=== PATIENT | female | born 1960 | race Caucasian/White ===

== ENCOUNTER 2018-08-07 16:28 | Outpatient (CLI) | payer OTHER | END 2018-08-07 16:29 | disposition home or self-care (01) | LOC: BICMAMMO 16:28 | PROVIDERS: ATTEND Obstetrics & Gynecology | DX: Z12.31 Encounter for screening mammogram for malignant neoplasm of breast (principal) | CPT/HCPCS: 77063; 77067 ==

== ENCOUNTER 2020-01-10 19:18 | Observation (INO) | payer OTHER ==
[2020-01-10] MEDS ORDERED: Ondansetron PF 4 MG/2 ML Vial IVP PRN (21:37)
[2020-01-10] MEDS ORDERED: Ondansetron ODT 4 MG TAB PO PRN (21:37)
[2020-01-10] MEDS ORDERED: Acetaminophen 325 MG TAB PO PRN (21:37)
[2020-01-10] MEDS ORDERED: traMADol HCl 50 MG TAB PO PRN (21:40)
[2020-01-10] MEDS ORDERED: Sodium Chloride 0.9% 1,000 ML IV SCH (22:00)
[2020-01-10] MEDS: cefTRIAXone\\ROCEPHIN 1 GM in Sodium Chloride 0.9% 100 ML IVPB SCH (23:01)
--- NOTE | 2020-01-10 23:20 | ULT ---
US Renal Bilateral STANDARD History: Evaluate for hemorrhagic cysts. Polycystic kidneys Comparison: None. Findings: There is cysts replacing majority of the renal parenchyma. Right kidney measures 7.9 x 8.3 x 18.9 cm and the left kidney measures 6.8 x 17 x 7.1 cm. Mild fullness of the left renal pelvis. No abnormal mass is appreciated. Interpolar left-sided 7 mm calculus, nonobstructing. Largest cysts of the right kidney measures 8 cm and the largest cyst of the left kidney measures 5 cm . Urinary bladder volume is 70 mL. Impression: 1. Polycystic kidneys with innumerable large cysts replacing the majority of the renal parenchyma. 2. Nonobstructive 7 mm left interpolar calculus. 3. Mild fullness of the left renal pelvis.
--- NOTE | 2020-01-10 23:46 | HP ---
PRIMARY CARE PHYSICIAN: Dr. Sanchez. CHIEF COMPLAINT: 1. Left flank and back pain. HISTORY OF PRESENT ILLNESS: The patient is a 59-year-old female with past medical history significant for polycystic kidney disease, kidney stones, diabetes type 2 with insulin pump, hypertension, hypothyroidism, who presents to the [facility] for the above complaint. The patient reports the development of acute onset of left flank and back pain this morning when she woke. She describes the pain as colicky, exacerbated and relieved by nothing. She reports that she went into work this morning and the pain intensified. She denies any nausea, vomiting, or diarrhea. She denies any dysuria or hematuria. She denies any recent fever or chills. The patient has a history of polycystic kidney disease and was concerned that she might have had a ruptured cyst, so she wanted further evaluation. At [facility], she was found to be hypertensive with a blood pressure 181/91 with a regular pulse, regular respirations, and regular oxygen saturation with 6/10 pain, and she was afebrile. CT of the abdomen and pelvis was positive for 2 to 3 mm calculus in the interpolar region of the left kidney and also a 1.3 x 1.0 cm calculus in the proximal left ureter with moderate to severe hydronephrosis. The patient had WBC count of 15.4. She had a BUN of 43 and a creatinine of 3.5. UA had small blood and protein of 100. It was recommended that the patient transfer by EMS to [facility] in [place]. The patient declined EMS and drove a personal vehicle. The patient also declined any medication treatment at the [facility]. PAST MEDICAL HISTORY: 1. Polycystic kidney disease. 2. Kidney stones. 3. Diabetes, type 2 with insulin pump. 4. Chronic kidney disease. 5. Hypertension. 6. Hypothyroidism. SURGICAL HISTORY: 1. Gastric sleeve. 2. . SOCIAL HISTORY: The patient lives with her family at home. She has no history of smoking, illicit drug use, or alcohol intake. She ambulates without any assistive devices, and she works at [employer] in [place]. FAMILY HISTORY: Contributory for polycystic kidney disease. ALLERGIES: NO KNOWN DRUG ALLERGIES. HOME MEDICATIONS: 1. Apresoline 25 mg p.o. b.i.d. 2. Synthroid 25 mcg p.o. daily. 3. Lasix 80 mg p.o. q.a.m. 4. Allopurinol 100 mg p.o. daily. 5. Aspirin 81 mg p.o. daily. REVIEW OF SYSTEMS: All review of systems are negative unless otherwise stated in the HPI. PHYSICAL EXAMINATION: VITAL SIGNS: 98 degree temperature, blood pressure 136/75, heart rate 78, respirations 18, and 99% on room air. Pain level, 6/10. CONSTITUTIONAL: The patient is alert and oriented to person, place, and time. She appears comfortable, nontoxic in appearance. HEAD: Atraumatic and normocephalic. EYES: PERRLA. Extraocular muscles intact. ENT: Nares patent bilaterally. Oropharynx clear. Uvula midline. Moist mucous membranes. No oral lesions. NECK: Supple. Trachea midline. Full range of motion. No cervical adenopathy. RESPIRATORY: Chest, respirations even and unlabored. Clear to auscultation. No rhonchi, wheezes, or rales. CARDIOVASCULAR: S1 and S2 appreciated. No murmurs, rubs, or gallops. ABDOMEN: Soft, nontender. Active bowel sounds. No guarding. No rigidity. No rebound. BACK: Full range of motion. No central spinous tenderness. Mild left CVA tenderness. EXTREMITIES: Bilateral upper extremities, full range of motion, strength intact , sensation intact, palpable radial pulses. Bilateral lower extremities, full range of motion, strength intact, sensation intact, palpable pedal pulses. No swelling. NEUROLOGIC: The patient is alert and oriented to person, place, and time. No focal deficits. Normal gait. PSYCHIATRIC: Normal affect. The patient is alert and oriented to person, place , and time. LABS AND DIAGNOSTICS: CT of the abdomen and pelvis was positive for 2 to 3 mm calculus in interpolar of the left kidney and a calculus in the proximal left ureter, approximately 1.3 to 1.0 cm with some moderate to severe hydronephrosis. Sodium 138, potassium 3.5, chloride 103, CO2 27, BUN 43, creatinine 3.5, glucose 93. WBCs 15.4, hemoglobin 12.2, hematocrit 37.9, and platelets 33.9. UA had positive small blood and protein of 100. IMPRESSION: 1. Left obstructing ureteral stone with severe left hydronephrosis. We will admit the patient to the oncology floor observation status. Expected length of stay less than 2 midnights. Upon admission to the floor in our hospital, the patient had normal blood pressure, normal pulse, normal respirations, and was afebrile. Reported pain, 6/10. CT of the abdomen and pelvis from the [facility] was positive for 2.3 mm calculus in the interpolar region of the left kidney and a calculus in the proximal left ureter 1.3 x 1.0 cm with moderate to severe hydronephrosis. The patient's WBCs were 15.4, BUN of 43, creatinine of 3.5. We will give IV fluid hydration. We will start Rocephin IV piggyback. We will consult Urology. We will start tramadol p.r.n. for analgesia. 2. Polycystic kidney disease. CT of the abdomen and pelvis did state that the findings are consistent with polycystic kidney disease, but noted that there are hyperattenuating lesions in the right and left kidney, likely proteinaceous versus hemorrhagic cyst, which could be better evaluated with an ultrasound. I will order a bilateral ultrasound. 3. Chronic kidney disease, stage 4. 4. Diabetes, type 2. The patient has an insulin pump, and she has declined any Accu-Cheks. She prefers to monitor her sugars on her own, stating that she knows her body best. 5. Hypertension. The patient originally reported to the [facility] hypertensive ; however, on admission to the hospital in [facility], she was normotensive. She reports that the blood pressure cuff used there in the [facility] was not the proper size and it was false high. We will continue to monitor patient's blood pressure. We will restart her Apresoline. We will hold her Lasix for now. 6. Hypothyroidism. The patient takes Synthroid as home medication. We will restart when reconciled by nursing. 7. Sequential compression devices for deep venous thrombosis prophylaxis. No gastrointestinal prophylaxis. The patient is a full code. The MPOA is her spouse, Magdiel, number [phone]. 8. Discussed the case with Dr. Herrera. Job ID: [id number] [id number]
[2020-01-11 00:09] VITALS: BMI 49.1
[2020-01-11 06:10] LABS: #Eosinphils 0.1 thou/uL (0.0-0.7); #Lymphocytes 1.6 thou/uL (1.20-3.40); #Monocytes 0.7 thou/uL (0.11-0.59); #Neutrophils 12.9 thou/uL (1.40-6.50); %Basophils 0.1 % (0.0-1.0); %Eosinophils 0.4 % (0.0-10.0); %Lymphocytes 10.4 % (21.0-51.0); %Monocytes 4.3 % (0.0-10.0); %Neutrophils 84.8 % (42.0-75.0); Hemoglobin 12.2 g/dL (12.0-16.0); Mean Corpuscular HGB CONC 33.3 g/dL (32.0-36.0); Mean Corpuscular Hemoglobin 27.5 pg (27.0-31.0); Mean Corpuscular Volume 82.6 fL (78.0-98.0); Mean Platelet Volume 7.7 fL (7.4-10.4); Platelet Count 356 thou/uL (130-400); RBC Distribution Width 14.3 % (11.5-14.5); Red Blood Cell (RBC) Count 4.45 mill/uL (4.20-5.40); White Blood Cell (WBC) Count 15.3 thou/uL (4.8-10.8)
[2020-01-11 06:28] LABS: Anion Gap 18 mmol/L (10-20); BUN (Urea Nitrogen) 49 mg/dL (9.8-20.1); Calc. Creatinine Clearance 31 mL/min (70-130); Calcium 9.4 mg/dL (7.8-10.44); Carbon Dioxide 23 mmol/L (22-29); Chloride 101 mmol/L (98-107); Estimated GFR-MDRD 11; Glucose 290 mg/dL (70-105); Potassium 3.9 mmol/L (3.5-5.1); Sodium 138 mmol/L (136-145)
[2020-01-11] MEDS ORDERED: Allopurinol 300 MG TAB PO SCH (09:00)
[2020-01-11] MEDS: Aspirin Chewable 81 MG TAB PO SCH (09:23)
[2020-01-11] MEDS: hydrALAZINE 25 MG TAB PO SCH ×2 (09:23→21:39)
--- NOTE | 2020-01-11 10:03 | CT ---
CT ABDOMEN AND PELVIS PERFORMEDOUT CONTRAST ENHANCEMENT: HISTORY: Hydronephrosis left kidney noted on ultrasound examination. FINDINGS: The lung bases are clear. The patient has undergone a gastric bypass-type procedure. The liver, spleen, pancreas, and gallbladder regions appear unremarkable. Right and left adrenal glands are normal. Polycystic kidneys are demonstrated. There is an approxim ately 12 mm lower pole right renal calculus and some punctate upper pole calculi present. On the lef t side there is a 12 mm calculus at the left ureteropelvic junction causing mild left-sided hydroneph rosis. There are some punctate left-sided renal calculi. Some of the cysts are of increased density probably related to hemorrhagic-type cysts. No significant periaortic or mesenteric adenopathy. CT OF PELVIS PERFORMED WITHOUT CONTRAST ENHANCEMENT: No adenopathy or mass. IMPRESSION: 1. Innumerable bilateral renal cysts, some of which are probably hemorrhagic in nature compatible wi th polycystic kidney disease. Also, bilateral renal calculi and some mild to moderate left-sided hyd ronephrosis related to a 12 mm left ureteropelvic junction calculus. 2. Incidental note is made of a small lipoma of the left tensor fascia des muscle. 3. Postop gastric bypass. POS: [facility]
--- NOTE | 2020-01-11 11:13 | CON ---
DATE OF CONSULTATION: 01/11/2020 PRIMARY CARE PHYSICIAN: Prerna Sanchez MD REASON FOR CONSULT: Polycystic kidney disease, hydronephrosis, left large ureteral calculi. HISTORY OF PRESENT ILLNESS: Ms. Calderon is a pleasant 59-year-old female, G2, P2, works at [employer] who has a history of polycystic kidney disease followed by Dr. Jarvis, type 2 diabetes, morbid obesity, hypertension, hypothyroidism, presented to an outside emergency room due to acute onset of left flank pain. Pain is rated in the left lower back radiating to the left lower quadrant, rated 6 to 8/10 on the pain scale with associated nausea. She denies history of fever, gross hematuria. The patient with history of autosomal dominant polycystic kidney disease, relates that she has one child, special needs, not yet tested. She has a brother who has also polycystic kidney disease, who has ruptured his kidney cyst in the past. The patient states that she has a pending appointment with Dr. Evans sometime next week as she called him regarding her left flank pain and was transitioned to the emergency room. She denies chest pain, shortness of breath, fever, chest pain. On admission, her white count is 15, she is afebrile. However, she does have an acute renal insufficiency from her baseline creatinine of 1.1 to 2.9. Her creatinine today is 4.22. She does relate prior history of uric acid stones, which she has passed tiny kidney stones in the past, denies prior surgical intervention for urolithiasis. She is on allopurinol for her gout, relates that this was provided to "dissolve" her stones. Currently, she was provided tramadol, resting comfortably. A renal ultrasound was done in-house as an outside CT demonstrated left hydronephrosis, polycystic kidney disease. As her creatinine is worse, renal ultrasound was obtained demonstrating mild hydronephrosis. I advised a stat CT scan, due to conflicting results, moreover with polycystic kidney disease, renal ultrasound will be somewhat suboptimal to assess for degree of hydronephrosis. PAST MEDICAL HISTORY: Polycystic kidney disease; history of urolithiasis, recurrent; type 2 diabetes, on insulin pump; chronic kidney disease, hypertension, hypothyroidism, morbid obesity. SURGICAL HISTORY: Gastric sleeve, status post . SOCIAL HISTORY: Lives at home, has extended family. Works at [employer] . FAMILY HISTORY: Positive for polycystic kidney disease. ALLERGIES: NO KNOWN DRUG ALLERGIES. HOME MEDICATIONS: Include. 1. Apresoline. 2. Synthroid. 3. Lasix. 4. Allopurinol. 5. Baby aspirin. CURRENT MEDICATIONS: Include, 1. Acetaminophen. 2. Allopurinol 300 mg. 3. Baby aspirin. 4. Rocephin. 5. Hydralazine. 6. Zofran. 7. Tramadol. TEN-POINT REVIEW OF SYSTEM: I have reviewed all 10-point review of system, otherwise it is unremarkable per HPI. PHYSICAL EXAMINATION: VITAL SIGNS: Stable. She is afebrile, 98, 80, 94, 132/60. GENERAL: The patient appears to be in no acute distress. HEENT: Grossly unremarkable. HEART: Regular rate. LUNGS: Clear. ABDOMEN: Morbidly obese, protuberant. No rigidity. No rebound. BACK: No significant CVA tenderness appreciated at this time. EXTREMITIES: No cyanosis, clubbing, or edema. Moving all 4 extremities NEUROLOGIC: No gross focal deficits. Sensation and muscle strength appears to be intact. SKIN: Soft and supple with no gross evidence of lymphadenopathy of concern. PERTINENT LABORATORY DATA AND IMAGING: White count is 15, hemoglobin is 12, platelet 356. Sodium 139, potassium 3.9, BUN 49, creatinine is 4.22. Her baseline creatinine is 1.1 to 2.9. Her hemoglobin A1c is 8.6. Uric acid is mildly elevated at 6.5. Calcium is 9.4. She does not have a current urinalysis. Her previous urine pH was 6.5 with no evidence of bacteria. Renal ultrasound images, which I have reviewed myself. 01/10/2020, polycystic disease with innumerous large renal cysts, nonobstructing 7 mm left interpolar calculus with mild fullness of the left kidney. CT of the abdomen and pelvis images, which I have reviewed myself: Innumerable bilateral renal cysts, some of which are probably hemorrhagic in nature and consistent with polycystic kidney disease. Bilateral renal calculi with moderate left hydronephrosis. There is a 12 to 13 mm left proximal ureteral calculi. Right lower pole 1 cm renal calculi. Hounsfield unit of the stone is approximately 491. Stone to skin distance is over 20 cm. IMPRESSION AND PLAN: Ms. Calderon is a pleasant 59-year-old female with history of , 1. Polycystic kidney disease. Recommend her child be tested with renal ultrasound 2. Chronic kidney disease. 3. Diabetes. 4. Hypertension. 5. Recurrent urolithiasis. Current admission due to large left proximal ureteral calculi, large proximal left renal calculi at the level of L3-L4. 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 6. Acute kidney injury. RECOMMENDATIONS: Given large left stone nidus with acute kidney injury, recommend cysto and left retrograde stent placement. UA C and S is to be obtained. I discussed with patient that despite her history of gout and uric acid stone, it is visible on sign shop supervisor, likely has a calcium moiety as well. Nevertheless, we will check a urinalysis pH, room for alkalinization if significant low urine pH for medical dissolution therapy, if component of uric acid. We discussed options of proceeding with ureteral stent due to acute kidney injury. Indications reviewed and she desires to proceed. She relates that she would like to follow up with Dr. Evans as planned, as her sees Dr. Evans as well. She would like to proceed with stent will transition care to Dr. Evans sometime next week. Continue Rocephin and Levaquin on-call to OR. She is a poor candidate for ESWL due to morbid obesity, stone to skin distance seen on CT. Reviewed with her regarding indications of staged ureteroscopy laser lithotripsy at a later date Job ID: [id number] [facility]
[2020-01-11 11:26] LABS: Bacteria/HPF None Seen HPF (None Seen); Bilirubin Negative (Negative); Blood, Urine 1+ (Negative); Clarity Clear (Clear); Glucose, Urine (Dipstick) 500 mg/dL (Negative); Ketone, Urine Negative (Negative); Leukocyte Negative Leu/uL (Negative); Nitrite Negative (Negative); Protein, Urine (Dipstick) 100 mg/dL (Neg-Trace); Specific Gravity, Urine 1.013 (1.002-1.036); Urobilinogen Normal mg/dL (Less than 2); WBC/HPF 0-3 HPF (0-3); pH, Urine 5.5 (5.0-9.0)
[2020-01-11] MEDS ORDERED: PROPOFOL 200 MG/20 ML VIAL ONE (13:18)
[2020-01-11] MEDS ORDERED: Lidocaine 1% PF 5 ML VIAL ONE (13:18)
[2020-01-11] MEDS ORDERED: Succinylcholine Chloride 20 MG/ML 10 ml SYRINGE FS ONE (13:18)
[2020-01-11] MEDS ORDERED: Ondansetron PF 4 MG/2 ML Vial ONE (13:18)
[2020-01-11] MEDS ORDERED: EPHEDRINE 25 MG/5 ML SYRINGE ONE (13:18)
[2020-01-11] MEDS ORDERED: Dexamethasone 20 MG/5 ML VIAL ONE (13:18)
[2020-01-11] MEDS ORDERED: Iopamidol 50 ML FS ONE (14:57)
[2020-01-11] MEDS ORDERED: Fentanyl 100 MCG/2 ML VIAL ONE ×2 (14:58→15:11)
[2020-01-11] MEDS ORDERED: Insulin Regular 300 UNITS/3 ML VIAL ONE (15:02)
[2020-01-11] MEDS ORDERED: Phenazopyridine HCl 97.5 MG TABLET PO PRN (15:54)
[2020-01-11] MEDS ORDERED: Oxybutynin 5 MG TAB PO PRN (15:54)
[2020-01-11] MEDS ORDERED: HYDROcodone/Acetaminophen 5/325 mg Tablet PO PRN ×2 (15:54)
--- NOTE | 2020-01-11 16:01 | RAD ---
RETROGRADE UROGRAM: 01/11/20 PROVIDED CLINICAL HISTORY: Ureteral calculus. FINDINGS: Single fluoroscopic imaging of the abdomen demonstrates contrast opacification of the left ureter and left renal collecting systems, latter of which appears dilated. Lucency within the left renal pelvis may be on the basis of artifactual or filling defect. Correlate with real time findings. IMPRESSION: As above. POS: [facility]
[2020-01-11] MEDS ORDERED: Ondansetron HCl/PF 4 MG/2 ML Vial IVP PRN (16:02)
[2020-01-11] MEDS ORDERED: Meperidine HCl/PF 25 MG/ML VIAL SLOW IVP PRN (16:02)
[2020-01-11] MEDS ORDERED: HYDROmorphone 2 MG/ML VIAL SLOW IVP PRN (16:02)
[2020-01-11] MEDS ORDERED: Promethazine HCl 25 MG/ML VIAL IM PRN (16:02)
[2020-01-11] MEDS ORDERED: Promethazine HCl 25 MG/ML VIAL SLOW IVP PRN (16:02)
[2020-01-11] MEDS: Potassium Citrate 10 MEQ TAB PO SCH ×2 (17:10→18:55)
[2020-01-11] MEDS: Sodium Chloride 0.9% 1,000 ML IV SCH ×2 (17:36→21:39)
--- NOTE | 2020-01-11 19:39 | OP ---
DATE OF PROCEDURE: 01/11/2020 PREOPERATIVE DIAGNOSES: 1. A 59-year-old morbidly obese female with history of left proximal 1.3 cm ureteral calculi with hydronephrosis. 2. Right nonobstructing lower pole renal calculi. 3. Bilateral polycystic kidney disease with chronic renal insufficiency. 4. Acute kidney injury. POSTOPERATIVE DIAGNOSES: 1. A 59-year-old morbidly obese female with history of left proximal 1.3 cm ureteral calculi with hydronephrosis. 2. Right nonobstructing lower pole renal calculi. 3. Bilateral polycystic kidney disease with chronic renal insufficiency. 4. Acute kidney injury. PROCEDURES PERFORMED: Cystoscopy, left retrograde pyelogram, 6 x 26 double-J ureteral stent placement. ANESTHESIA: General. COMPLICATIONS: None apparent. DISPOSITION: To recovery room in stable condition. INDICATIONS FOR PROCEDURE AND HISTORY: Ms. Calderon is a 59-year-old female who has history of polycystic kidney disease, presented with left flank pain, nausea, worsening of her creatinine. CT reviewed demonstrating a large left proximal ureteral calculi. She has been on Rocephin, urine culture pending. She presents with leukocytosis and acute renal insufficiency. Recommend cysto stent placement. Risks and complications of the procedure were reviewed with her in detail including, but not limited to, bleeding, pain, infection, injury to adjacent organs, urosepsis, ureteral renal bladder injury. We also discussed options of observation, which was less favored due to her presenting issues. DESCRIPTION OF PROCEDURE: After an informed consent was signed, the patient was taken to the operating room, placed in a dorsal lithotomy position with the genital area prepped and draped in the usual surgical sterile fashion. She has a large radiopaque density on KUB consistent with calcium stone. A 21-Kinyarwanda cystoscope was utilized for cystoscopy, which demonstrated normal bladder mucosa. Bilateral UOs were in normal orthotopic position and appeared patulous bilaterally. An open- ended catheter was intubated without significant issues and retrograde pyelogram gently performed demonstrating hydronephrosis with a large radiopaque stone. The stone did subsequently migrate into the renal pelvis, upper pole. A 6 x 26 double-J ureteral stent was passed without difficulty. She had no significant effluxing debris of concern. She tolerated the procedure well. She will be transitioned back to her floor. We will monitor her BMP. Anticipate the patient can be discharged likely tomorrow. She related that she would like to see Dr. Evans, as she had an appointment with him next week to assess her kidney stone. Job ID: [id number] TORI
[2020-01-11] MEDS ORDERED: cefTRIAXone\\ROCEPHIN 1 GM VIAL ONE (21:23)
[2020-01-11] MEDS: cefTRIAXone\\ROCEPHIN 1 GM in Sodium Chloride 0.9% 100 ML IVPB SCH (21:38)
[2020-01-11] MEDS: Docusate 100 MG CAP PO SCH (21:45)
[2020-01-12 04:40] LABS: #Lymphocytes 0.9 thou/uL (1.20-3.40); #Monocytes 0.4 thou/uL (0.11-0.59); #Neutrophils 10.1 thou/uL (1.40-6.50); %Basophils 0.1 % (0.0-1.0); %Eosinophils 0.1 % (0.0-10.0); %Lymphocytes 7.5 % (21.0-51.0); %Monocytes 3.7 % (0.0-10.0); %Neutrophils 88.6 % (42.0-75.0); Hemoglobin 10.9 g/dL (12.0-16.0); Mean Corpuscular HGB CONC 31.6 g/dL (32.0-36.0); Mean Corpuscular Hemoglobin 26.3 pg (27.0-31.0); Mean Corpuscular Volume 83.3 fL (78.0-98.0); Mean Platelet Volume 7.7 fL (7.4-10.4); Platelet Count 295 thou/uL (130-400); RBC Distribution Width 13.9 % (11.5-14.5); Red Blood Cell (RBC) Count 4.14 mill/uL (4.20-5.40); White Blood Cell (WBC) Count 11.4 thou/uL (4.8-10.8)
[2020-01-12 05:01] LABS: Anion Gap 15 mmol/L (10-20); BUN (Urea Nitrogen) 56 mg/dL (9.8-20.1); Calc. Creatinine Clearance 31 mL/min (70-130); Carbon Dioxide 22 mmol/L (22-29); Chloride 101 mmol/L (98-107); Estimated GFR-MDRD 11; Glucose 301 mg/dL (70-105); Potassium 3.9 mmol/L (3.5-5.1); Sodium 134 mmol/L (136-145)
[2020-01-12] MEDS: hydrALAZINE 25 MG TAB PO SCH (07:58)
[2020-01-12] MEDS: Aspirin Chewable 81 MG TAB PO SCH (07:59)
[2020-01-12] MEDS: Docusate 100 MG CAP PO SCH ×2 (07:59→08:01)
[2020-01-12] MEDS: Potassium Citrate 10 MEQ TAB PO SCH (07:59)
[2020-01-12] MEDS: Sodium Chloride 0.9% 1,000 ML IV SCH (07:59)
[2020-01-12 08:28] VITALS: BP 183/75; TEMP 98.2
[2020-01-12] MEDS ORDERED: Allopurinol 100 MG TAB PO SCH (09:00)
--- NOTE | 2020-01-12 10:41 | PRG ---
DATE OF SERVICE: 01/12/2020 SUBJECTIVE: The patient states that her pain is significantly improved. Denies nausea, vomiting, or fever. Has pink-tinged hematuria, which is expected. OBJECTIVE: VITAL SIGNS: Stable. She is 98, 69, 18, 95, and blood pressure is 183/75. I's and O's; 3130 in, 500 out. She is positive 2.6 L. Of note, her Lasix has been held due to acute renal insufficiency with chronic renal issues. GENERAL: The patient is in no acute distress. LUNGS: Clear. ABDOMEN: Soft, nontender, nondistended. No CVA tenderness. LABORATORY STUDIES: White count has decreased since admission from 15 to 11. No significant bandemia of concern. Renal function, her creatinine on presentation is 4.2, this morning is 1.1. Glucose 311. Urine culture negative thus far. Of note, this urine culture was obtained after she has received her antibiotic course of Rocephin. IMPRESSION AND PLAN: 1. Ms. Calderon is a pleasant 59-year-old morbidly obese female with history of polycystic disease. 2. Current admission due to left flank pain, due to a large left proximal ureteral calculi measuring 1.3 cm with hydronephrosis. 3. Right lower pole nonobstructing renal calculi, postop day #1, status post cysto,left retrograde stent. patient has significant improvement of her pain, she has no fever of concern. I informed the patient that it would be prudent to keep her another day to monitor her renal function. She is pretty adamant about being discharged to home. 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 Jarvis. In addition, she states that she has an appointment with Dr. Evans next week. I do recommend she follow up with her school psychological examiner to obtain a BMP profile in a close interval. She may be discharged with broad-spectrum antibiotic therapy such as Levaquin 250 mg one p.o. daily, Azo [id number] p.r.n., oxybutynin 10 mg XL one p.o. daily, tramadol p.r.n. if she has any discomfort. The patient advised regarding close followup as above. Can be discharged per her request. Discussed with hospitalist. Job ID: [id number] [id number]
--- NOTE | 2020-01-12 11:12 | DIS ---
DATE OF ADMISSION: 01/10/2020 DATE OF DISCHARGE: 01/12/2020 DISCHARGE DISPOSITION: Home. FOLLOWUP: 1. Follow up with primary care physician, Dr. Prerna Sanchze in 1 week. 2. Follow up with Nephrology, Dr. Basil Jarvis and Urology as scheduled. 3. Basic metabolic profile after 1 week is recommended. Primary care physician advised to follow. DISCHARGE MEDICATIONS: 1. Levaquin 250 mg every other day. 2. Oxybutynin as needed. The patient was advised to discontinue Lasix and allopurinol for now. The patient was seen on the day of discharge. Denies any new complaints. Vital signs showed temperature 98.4 with pulse rate of 75, respirations of 16, blood pressure of 144/65. BRIEF HOSPITAL COURSE: The patient is a 59-year-old female with polycystic kidney disease and CKD, presented to the emergency room with intractable left flank pain. Her workup was consistent with large left proximal ureteral calculi measuring 1.5 cm with hydronephrosis. She underwent cystoscopy with left retrograde stent placement by Dr. Camara. Abdominal pain has completely resolved. The urine cultures were drawn after the antibiotics, which came back negative. She will follow up with the above consultants as outpatient. FINAL DIAGNOSES: 1. Intractable left flank pain secondary to large left proximal ureteral calculi with hydronephrosis. 2. Acute kidney injury on chronic kidney disease stage 4. Creatinine slightly improved to 4.1 from 4.22. 3. Hypertension. 4. Diabetes mellitus type 2, on insulin pump. 5. History of polycystic kidney disease. 6. Mild hyponatremia. The patient understands the above plan of care. I discussed the plan of care with Urology and Nephrology. Job ID: [id number]
[2020-01-12 12:25] LABS: SARS-CoV-2 MS2 Positive; SARS-CoV-2 N Gene Negative; SARS-CoV-2 S Gene Negative; SARS-CoV-2 orf1ab Negative
== END 2020-01-12 10:05 | disposition home or self-care (01) ==
LOC: EEVIPCON 19:18 → ONC 19:18
PROVIDERS: ADMIT Internal Medicine; ATTEND Internal Medicine
PROC: 0T778DZ Dilation of Left Ureter with Intraluminal Device, Via Natural or Artificial Opening Endoscopic (ICD-10-PCS; principal; 2020-01-11)
DX: N13.2 Hydronephrosis with renal and ureteral calculous obstruction (principal); I12.9 Hypertensive chronic kidney disease with stage 1 through stage 4 chronic kidney disease, or unspecified chronic kidney disease; E11.22 Type 2 diabetes mellitus with diabetic chronic kidney disease; N18.4 Chronic kidney disease, stage 4 (severe); N17.9 Acute kidney failure, unspecified; Q61.19 Other polycystic kidney, infantile type; E87.1 Hypo-osmolality and hyponatremia; E03.9 Hypothyroidism, unspecified; M10.9 Gout, unspecified; E66.01 Morbid (severe) obesity due to excess calories; Z68.42 Body mass index [BMI] 45.0-49.9, adult; Z79.4 Long term (current) use of insulin; Z79.82 Long term (current) use of aspirin; Z79.899 Other long term (current) drug therapy; Z88.8 Allergy status to other drugs, medicaments and biological substances; Z96.41 Presence of insulin pump (external) (internal); Z98.84 Bariatric surgery status
CPT/HCPCS: 36415; 36416; 74176; 74420; 76770; 80048; 81001; 85025; 87086; 87635; 96361; 96375; 96376; G0378; J0696; J1100; J1815; J2001; J2405; J2704; J3010; J3490; Q0162; Q9967; U0003

== ENCOUNTER 2020-01-18 11:49 | Outpatient (CLI) | payer OTHER ==
[2020-01-19 12:38] LABS: SARS-CoV-2 MS2 Positive; SARS-CoV-2 N Gene Negative; SARS-CoV-2 S Gene Negative; SARS-CoV-2 orf1ab Negative
== END 2020-01-18 11:50 | disposition home or self-care (01) ==
LOC: LABBT 11:49
PROVIDERS: ATTEND Urology
DX: Z01.812 Encounter for preprocedural laboratory examination (principal); Z11.59 Encounter for screening for other viral diseases; N20.1 Calculus of ureter
CPT/HCPCS: 87635; U0003

== ENCOUNTER 2020-01-23 07:11 | Day surgery (SDC) | payer OTHER ==
[2020-01-21 10:13] VITALS: BMI 48.2
[2020-01-23 08:52] LABS: #Basophils 0.1 thou/uL (0.0-0.2); #Eosinphils 0.2 thou/uL (0.0-0.7); #Lymphocytes 1.7 thou/uL (1.20-3.40); #Monocytes 0.5 thou/uL (0.11-0.59); #Neutrophils 5.7 thou/uL (1.40-6.50); %Basophils 1.3 % (0.0-1.0); %Lymphocytes 20.6 % (21.0-51.0); %Monocytes 6.4 % (0.0-10.0); %Neutrophils 68.7 % (42.0-75.0); Hemoglobin 11.4 g/dL (12.0-16.0); Mean Corpuscular HGB CONC 32.2 g/dL (32.0-36.0); Mean Corpuscular Hemoglobin 26.9 pg (27.0-31.0); Mean Corpuscular Volume 83.5 fL (78.0-98.0); Mean Platelet Volume 7.3 fL (7.4-10.4); Platelet Count 324 thou/uL (130-400); RBC Distribution Width 14.1 % (11.5-14.5); Red Blood Cell (RBC) Count 4.24 mill/uL (4.20-5.40); White Blood Cell (WBC) Count 8.2 thou/uL (4.8-10.8)
[2020-01-23 08:57] LABS: PTT 32.5 sec (22.9-36.1); Prothrombin Time 13.2 sec (12.0-14.7)
[2020-01-23 09:16] LABS: Anion Gap 13 mmol/L (10-20); BUN (Urea Nitrogen) 46 mg/dL (9.8-20.1); Calc. Creatinine Clearance 41 mL/min (70-130); Calcium 9.2 mg/dL (7.8-10.44); Carbon Dioxide 28 mmol/L (22-29); Chloride 103 mmol/L (98-107); Estimated GFR-MDRD 15; Glucose 108 mg/dL (70-105); Potassium 3.2 mmol/L (3.5-5.1); Sodium 141 mmol/L (136-145)
[2020-01-23] MEDS ORDERED: Fentanyl 100 MCG/2 ML VIAL ONE (10:58)
[2020-01-23] MEDS ORDERED: Ondansetron PF 4 MG/2 ML Vial ONE (11:08)
[2020-01-23] MEDS ORDERED: PROPOFOL 200 MG/20 ML VIAL ONE (11:08)
[2020-01-23] MEDS ORDERED: EPHEDRINE 25 MG/5 ML SYRINGE ONE (11:08)
[2020-01-23] MEDS ORDERED: Rocuronium Bromide 10 MG/ML (10ML VIAL) ONE (11:08)
[2020-01-23] MEDS ORDERED: Lidocaine 1% PF 5 ML VIAL ONE (11:08)
[2020-01-23] MEDS ORDERED: SUGAMMADEX SODIUM 200 MG/2 ML VIAL ONE (12:14)
[2020-01-23] MEDS ORDERED: Iothalamate Meglumine 60% 50 ML VIAL FS ONE (12:31)
--- NOTE | 2020-01-23 14:50 | RAD ---
EXAM: Retrograde IVP HISTORY: Kidney stones COMPARISON: 01/11/2020 FINDINGS/IMPRESSION: Limited intraoperative fluoroscopic views of the retrograde IVP were submitted f or interpretation. The initial image shows a left-sided ureteral stent. A calcification is still seen adjacent to the proximal third of the stent. The latter images shows a lithotripsy device in the region of the calcification. The latter images show no residual calcification and a ureteral stent in good position in the left renal collecting system.
[2020-01-23] MEDS ORDERED: Ondansetron ODT 4 MG TAB ONE (16:49)
--- NOTE | 2020-01-23 19:35 | OP ---
DATE OF PROCEDURE: 01/23/2020 PREOPERATIVE DIAGNOSIS: Left proximal/renal pelvic stone measuring at least 1.2 cm in size. POSTOPERATIVE DIAGNOSIS: Left proximal/renal pelvic stone measuring at least 1.2 cm in size. PROCEDURES PERFORMED: Cystoscopy, removal of left stent, left retrograde, left flexible ureteroscopy with laser lithotripsy, stone retrieval, and stent replacement. ANESTHETIC: General. ESTIMATED BLOOD LOSS: Less than 75 mL. DRAINS: A 6-Australian x 22 cm double-J stent with a string attached. SPECIMEN REMOVED: Stone fragments. DESCRIPTION OF PROCEDURE: After obtaining written and verbal consent after receiving 250 of Levaquin, she was taken to the operating suite. She was placed in a supine position on the treatment table. PlexiPulses were placed on her lower extremities and turned on. She was given a general anesthetic and oral intubation. She was then gently placed in the modified dorsal lithotomy position. The fluoroscopy unit was placed over her. We could see the stent well, and we could actually see the stone well. She was sterilely prepped and draped. Cystoscopy was performed with a 22-Australian sheath. This was well lubricated and passed under direct vision into the female urethra with the aid of a 30-degree lens and video camera and monitor. The bladder was filled and emptied number of times and inspected. No abnormalities noted apart from the left double-J stent. The distal end of the stent was grasped and brought out through the urethral meatus, and a guidewire was fed up across this upper region of the collecting system. The stent was removed and discarded. A dual lumen catheter was placed over this guidewire and then contrast was injected through the second port showing no evidence of any extravasation and no significant evidence of hydronephrosis. The Stiff blue wire was placed through this port and the dual Australian catheters were removed, leaving both guidewires in place. A shortest ureteral sheath was used with obturator. This was well lubricated and placed over the blue Stiff wire and pushed all the way up to the area of the stone, which is just at the UPJ/renal pelvic junction region. The obturator wire was removed, and a flexible cystoscope was brought in and a small caliber holmium laser fiber was used. The stone was pushed back in the renal pelvis, and then it was treated with holmium laser lithotripsy, breaking up the smaller pieces. We would then use a basket to remove some of these. Couple of those were big enough that we had to laser them, and once this process was done and there was no significant fragment remaining, we looked at the ureter in its entirety as removed the sheath via the flexible ureteroscope. Once this was removed, we backloaded our green guidewire through the cystoscope, placed the [place] catheter up and injected some contrast to fill out a nonobstructing collecting system without any evidence of ureteral obstruction or extravasation along the collecting system. The guidewire was replaced, and then the stent was placed over the guidewire and pushed up into place with aid of a pusher, so its proximal end coiled in the renal pelvis and its distal end coiled in the bladder when the wire was removed. The bladder was drained. The instruments were removed. The string was cut, so it was exited 3 to 4 inches out of the urethral meatus. The patient was awakened, extubated, and taken by stretcher to the recovery room. Job ID: [id number]
== END 2020-01-23 17:58 | disposition home or self-care (01) ==
LOC: SDC 07:11
PROVIDERS: ATTEND Urology
PROC: 0TC48ZZ Extirpation of Matter from Left Kidney Pelvis, Via Natural or Artificial Opening Endoscopic (ICD-10-PCS; principal; 2020-01-23)
PROC: 0T778DZ Dilation of Left Ureter with Intraluminal Device, Via Natural or Artificial Opening Endoscopic (ICD-10-PCS; principal; 2020-01-23)
DX: N20.0 Calculus of kidney (principal); I12.9 Hypertensive chronic kidney disease with stage 1 through stage 4 chronic kidney disease, or unspecified chronic kidney disease; E11.22 Type 2 diabetes mellitus with diabetic chronic kidney disease; N18.9 Chronic kidney disease, unspecified; Z79.4 Long term (current) use of insulin; Z79.82 Long term (current) use of aspirin; Z79.899 Other long term (current) drug therapy; Z88.8 Allergy status to other drugs, medicaments and biological substances; Z91.041 Radiographic dye allergy status
CPT/HCPCS: 36415; 74420; 80048; 82365; 85025; 85610; 85730; 88300; J1956; J2405; J2704; J3010; Q0162

== ENCOUNTER 2021-03-17 19:00 | Outpatient (CLI) | payer OTHER | END 2021-03-17 19:01 | disposition home or self-care (01) | LOC: SLEEPLAB 19:00 | PROVIDERS: ATTEND Internal Medicine | DX: G47.33 Obstructive sleep apnea (adult) (pediatric) (principal); R06.83 Snoring; I10 Essential (primary) hypertension; G47.00 Insomnia, unspecified; G47.10 Hypersomnia, unspecified; E66.9 Obesity, unspecified; Z68.42 Body mass index [BMI] 45.0-49.9, adult | CPT/HCPCS: 95811 ==

== ENCOUNTER 2021-07-06 07:17 | Outpatient (CLI) | payer OTHER | END 2021-07-06 07:18 | disposition home or self-care (01) | LOC: ULT 07:17 | PROVIDERS: ATTEND Internal Medicine Nephrology | DX: I13.10 Hypertensive heart and chronic kidney disease without heart failure, with stage 1 through stage 4 chronic kidney disease, or unspecified chronic kidney disease (principal); E11.22 Type 2 diabetes mellitus with diabetic chronic kidney disease; N18.9 Chronic kidney disease, unspecified; R80.9 Proteinuria, unspecified; E87.6 Hypokalemia; N20.0 Calculus of kidney; E78.5 Hyperlipidemia, unspecified; Q61.3 Polycystic kidney, unspecified; N39.0 Urinary tract infection, site not specified; R31.0 Gross hematuria; E66.9 Obesity, unspecified; K21.9 Gastro-esophageal reflux disease without esophagitis | CPT/HCPCS: 76770; 93975 ==

== ENCOUNTER 2021-08-17 13:31 | Outpatient (CLI) | payer BC | END 2021-08-17 13:32 | disposition home or self-care (01) | LOC: BICMAMMO 13:31 | PROVIDERS: ATTEND Obstetrics & Gynecology | DX: Z12.31 Encounter for screening mammogram for malignant neoplasm of breast (principal) | CPT/HCPCS: 77063; 77067 ==

== ENCOUNTER 2021-12-15 03:34 | Inpatient (IN) | payer BC ==
[2021-12-15] MEDS ORDERED: Ondansetron PF 4 MG/2 ML Vial ONE (04:03)
[2021-12-15] MEDS ORDERED: Morphine 4 MG/ML VIAL ONE (04:03)
[2021-12-15 04:29] LABS: #Lymphocytes 1.2 thou/uL (1.20-3.40); #Monocytes 1.3 thou/uL (0.11-0.59); #Neutrophils 15.5 thou/uL (1.40-6.50); %Basophils 0.1 % (0.0-1.0); %Eosinophils 0.2 % (0.0-10.0); %Lymphocytes 6.6 % (21.0-51.0); %Neutrophils 86.1 % (42.0-75.0); Hemoglobin 8.7 g/dL (12.0-16.0); Mean Corpuscular Hemoglobin 29.4 pg (27.0-31.0); Mean Platelet Volume 7.1 fL (7.4-10.4); Platelet Count 283 thou/uL (130-400); RBC Distribution Width 13.9 % (11.5-14.5); Red Blood Cell (RBC) Count 2.97 mill/uL (4.20-5.40)
[2021-12-15 04:35] LABS: Bacteria/HPF 3+ HPF (None Seen); Bilirubin Negative (Negative); Blood, Urine 3+ (Negative); Clarity Extra Turbid (Clear); Glucose, Urine (Dipstick) 70 mg/dL (Negative); Ketone, Urine Trace mg/dL (Negative); Leukocyte 500 Leu/uL (Negative); Nitrite Negative (Negative); Protein, Urine (Dipstick) 100 mg/dL (Neg-Trace); RBC/HPF Greater than 50 HPF (0-3); Transitional Epithelial 0-3 HPF (None Seen); Urobilinogen Normal mg/dL (Less than 2); WBC/HPF Greater than 50 HPF (0-3); pH, Urine 5.5 (5.0-9.0)
[2021-12-15 04:50] LABS: ALT (SGPT) Less than 7 U/L (8-55); AST (SGOT) 10 U/L (5-34); Albumin 3.7 g/dL (3.5-5.0); Alkaline Phosphatase 53 U/L (40-110); Anion Gap 21 mmol/L (10-20); BUN (Urea Nitrogen) 96 mg/dL (9.8-20.1); Bilirubin, Total 0.5 mg/dL (0.2-1.2); Calc. Creatinine Clearance 0 mL/min (70-130); Calcium 8.9 mg/dL (7.8-10.44); Carbon Dioxide 14 mmol/L (22-29); Chloride 101 mmol/L (98-107); Globulin 3.3 g/dL (2.4-3.5); Glucose 122 mg/dL (70-105); Lipase 12 U/L (8-78); Potassium 3.9 mmol/L (3.5-5.1); Sodium 132 mmol/L (136-145)
[2021-12-15] MEDS ORDERED: cefTRIAXone\\ROCEPHIN 2 GM VIAL ONE (04:51)
[2021-12-15] MEDS ORDERED: Fentanyl 100 MCG/2 ML VIAL ONE (05:18)
[2021-12-15] MEDS ORDERED: Piperacillin/Tazobactam 3.375 GM in Sodium Chloride 0.9% 100 ML IVPB SCH (06:00)
[2021-12-15 08:03] VITALS: BMI 47.8
[2021-12-15] MEDS ORDERED: Dextrose 5% in Water 1,000 ML IV PRN (08:16)
[2021-12-15] MEDS ORDERED: Dextrose 50% Abboject 50 ML SYRINGE SLOW IVP PRN (08:16)
[2021-12-15] MEDS ORDERED: Senokot S 8.6-50 MG TAB PO PRN (08:23)
[2021-12-15] MEDS ORDERED: Ondansetron ODT 4 MG TAB PO PRN (08:23)
[2021-12-15] MEDS ORDERED: Sodium Chloride 0.9% 1,000 ML IV SCH (08:30)
[2021-12-15] MEDS: Morphine 2 MG/ML VIAL SLOW IVP PRN ×4 (08:38→20:59)
[2021-12-15] MEDS: Ondansetron PF 4 MG/2 ML Vial IVP PRN ×2 (08:39→16:54)
[2021-12-15] MEDS: Acetaminophen 325 MG TAB PO PRN (18:14)
[2021-12-16] MEDS: Ondansetron PF 4 MG/2 ML Vial IVP PRN ×2 (01:02→09:19)
[2021-12-16] MEDS: Morphine 2 MG/ML VIAL SLOW IVP PRN ×3 (01:02→09:19)
[2021-12-16] MEDS: cefTRIAXone\\ROCEPHIN 2 GM in Sodium Chloride 0.9% 100 ML IVPB SCH (04:59)
[2021-12-16 06:52] LABS: Band 11 % (5-11); Hemoglobin 8.4 g/dL (12.0-16.0); Lymphocytes 2 % (21-51); MDiff Complete? YES; Mean Corpuscular HGB CONC 31.5 g/dL (32.0-36.0); Mean Corpuscular Hemoglobin 28.9 pg (27.0-31.0); Mean Corpuscular Volume 91.8 fL (78.0-98.0); Mean Platelet Volume 7.7 fL (7.4-10.4); Monocytes 5 % (0-10); Neutrophil 82 % (42-75); Platelet Count 268 thou/uL (130-400); RBC Distribution Width 13.9 % (11.5-14.5); Red Blood Cell (RBC) Count 2.89 mill/uL (4.20-5.40); White Blood Cell (WBC) Count 22.4 thou/uL (4.8-10.8)
[2021-12-16 06:56] LABS: Anion Gap 21 mmol/L (10-20); BUN (Urea Nitrogen) 110 mg/dL (9.8-20.1); Calc. Creatinine Clearance 12 mL/min (70-130); Calcium 9.2 mg/dL (7.8-10.44); Carbon Dioxide 15 mmol/L (22-29); Chloride 100 mmol/L (98-107); Glucose 97 mg/dL (70-105); Potassium 4.4 mmol/L (3.5-5.1); Sodium 132 mmol/L (136-145)
[2021-12-16] MEDS: Pantoprazole 40 MG VIAL IVP SCH (09:20)
[2021-12-16] MEDS ORDERED: ceFAZolin 2 GM/Dextrose 50 ML 2 GM in Premix Bag 1 BAG IVPB SCH (10:15)
[2021-12-16] MEDS ORDERED: CEFAZOLIN 2 GM in Sodium Chloride 0.9% 100 ML IVPB SCH (10:45)
[2021-12-16 11:12] LABS: Hep C IgG Ab Non-Reactive (NonReactive); Hep C Index 0.21 S/CO (0-0.79)
[2021-12-16] MEDS ORDERED: Lidocaine 1% w/Epinephrine 1:100K 20 ML VIAL ONE (16:32)
[2021-12-16] MEDS ORDERED: Bupivacaine 0.25% HCL 30 ML VIAL ONE (16:32)
[2021-12-16] MEDS ORDERED: Heparin 10,000 UNITS/ 10 ML VIAL ONE (16:32)
[2021-12-16] MEDS: Tuberculin PPD 0.1 ML VIAL I-DERMAL SCH (22:08)
[2021-12-17] MEDS: Morphine 2 MG/ML VIAL SLOW IVP PRN (02:27)
[2021-12-17] MEDS: cefTRIAXone\\ROCEPHIN 2 GM in Sodium Chloride 0.9% 100 ML IVPB SCH (04:50)
[2021-12-17 06:55] LABS: #Eosinphils 0.1 thou/uL (0.0-0.7); #Neutrophils 17.8 thou/uL (1.40-6.50); %Basophils 0.1 % (0.0-1.0); %Eosinophils 0.6 % (0.0-10.0); %Lymphocytes 5.1 % (21.0-51.0); %Monocytes 5.2 % (0.0-10.0); Hemoglobin 8.3 g/dL (12.0-16.0); Mean Corpuscular Volume 90.8 fL (78.0-98.0); Mean Platelet Volume 7.5 fL (7.4-10.4); Platelet Count 327 thou/uL (130-400); RBC Distribution Width 13.9 % (11.5-14.5); Red Blood Cell (RBC) Count 2.86 mill/uL (4.20-5.40)
[2021-12-17 07:20] LABS: Anion Gap 23 mmol/L (10-20); BUN (Urea Nitrogen) 124 mg/dL (9.8-20.1); Calc. Creatinine Clearance 10 mL/min (70-130); Calcium 9.6 mg/dL (7.8-10.44); Carbon Dioxide 14 mmol/L (22-29); Chloride 100 mmol/L (98-107); Glucose 125 mg/dL (70-105); Potassium 4.5 mmol/L (3.5-5.1); Sodium 132 mmol/L (136-145)
[2021-12-17 08:42] LABS: HBSAB Concentration Less than 8.00 mIU/mL; HBSAg Index 0.27 S/CO (0-0.99); Hep B Core Total Ab Non-Reactive (NonReactive); Hep B Core Total Index 0.12 S/CO (0-0.79); Hep B Surf AB Non-Reactive (NonReactive); Hep B Surf Ag Non-Reactive S/CO (NonReactive); Hep C IgG Ab Non-Reactive (NonReactive); Hep C Index 0.21 S/CO (0-0.79)
[2021-12-17] MEDS ORDERED: Epoetin (ESRD) 10,000 UNITS/ML VIAL SC SCH (09:00)
[2021-12-17] MEDS: Pantoprazole 40 MG VIAL IVP SCH (10:27)
[2021-12-17] MEDS ORDERED: Lidocaine 1% w/Epinephrine 1:100K 20 ML VIAL ONE (12:21)
[2021-12-17] MEDS ORDERED: Heparin 10,000 UNITS/ 10 ML VIAL ONE (12:21)
[2021-12-17] MEDS ORDERED: Bupivacaine 0.25% HCL 30 ML VIAL ONE (12:21)
[2021-12-17] MEDS ORDERED: Midazolam HCl 2 mg/2 ml Vial ONE (12:25)
[2021-12-17] MEDS ORDERED: fentaNYL Citrate/PF 100 MCG/2 ML SYRINGE ONE (12:26)
[2021-12-17] MEDS ORDERED: Sodium Chloride 0.9% 100 ML ONE (12:32)
[2021-12-17] MEDS ORDERED: CEFAZOLIN 2 GM VIAL ONE (12:32)
[2021-12-17] MEDS ORDERED: SUGAMMADEX SODIUM 200 MG/2 ML VIAL ONE (12:33)
[2021-12-17] MEDS ORDERED: PROPOFOL 200 MG/20 ML VIAL ONE (12:46)
[2021-12-17] MEDS ORDERED: Lidocaine 1% PF 5 ML VIAL ONE (12:46)
[2021-12-17] MEDS ORDERED: Rocuronium Bromide 10 MG/ML (10ML VIAL) ONE (12:46)
[2021-12-17] MEDS ORDERED: Ondansetron PF 4 MG/2 ML Vial ONE (12:46)
[2021-12-17] MEDS ORDERED: PHENYLEPHRINE-NS 100 MCG/ML 10 ML SYRINGE ONE (12:46)
[2021-12-17] MEDS: Tuberculin PPD 0.1 ML VIAL I-DERMAL SCH (13:43)
[2021-12-17] MEDS: Acetaminophen 325 MG TAB PO PRN (18:17)
[2021-12-18] MEDS: Ondansetron PF 4 MG/2 ML Vial IVP PRN ×2 (00:36→23:00)
[2021-12-18] MEDS: cefTRIAXone\\ROCEPHIN 2 GM in Sodium Chloride 0.9% 100 ML IVPB SCH (04:41)
[2021-12-18 07:18] LABS: Hep B Surface AG-Rflx Sendout Negative (Negative); Hepatitis B Core Total Negative (Negative); Hepatitis B Surface AB-Sendout Non Reactive (.)
[2021-12-18] MEDS: Pantoprazole 40 MG VIAL IVP SCH (07:58)
[2021-12-18 08:38] LABS: #Eosinphils 0.1 thou/uL (0.0-0.7); #Lymphocytes 0.8 thou/uL (1.20-3.40); #Monocytes 0.9 thou/uL (0.11-0.59); #Neutrophils 16.1 thou/uL (1.40-6.50); %Eosinophils 0.8 % (0.0-10.0); %Lymphocytes 4.4 % (21.0-51.0); %Monocytes 4.9 % (0.0-10.0); %Neutrophils 89.9 % (42.0-75.0); Hemoglobin 8.4 g/dL (12.0-16.0); Mean Corpuscular HGB CONC 31.3 g/dL (32.0-36.0); Mean Corpuscular Hemoglobin 29.1 pg (27.0-31.0); Mean Corpuscular Volume 93.2 fL (78.0-98.0); Mean Platelet Volume 7.5 fL (7.4-10.4); Platelet Count 373 thou/uL (130-400); Red Blood Cell (RBC) Count 2.88 mill/uL (4.20-5.40)
[2021-12-18 08:57] LABS: Anion Gap 26 mmol/L (10-20); Calc. Creatinine Clearance 9 mL/min (70-130); Calcium 9.3 mg/dL (7.8-10.44); Carbon Dioxide 12 mmol/L (22-29); Chloride 99 mmol/L (98-107); Glucose 124 mg/dL (70-105); Potassium 5.1 mmol/L (3.5-5.1); Sodium 132 mmol/L (136-145)
[2021-12-18 09:08] LABS: BUN (Urea Nitrogen) 127 mg/dL (9.8-20.1)
[2021-12-18] MEDS ORDERED: Heparin 10,000 UNITS/ 10 ML VIAL ONE (09:31)
[2021-12-18] MEDS: Tuberculin PPD 0.1 ML VIAL I-DERMAL SCH (14:50)
[2021-12-18] MEDS: Calcium Carbonate 500 MG ChewTAB PO PRN (23:07)
[2021-12-19] MEDS: cefTRIAXone\\ROCEPHIN 2 GM in Sodium Chloride 0.9% 100 ML IVPB SCH (04:19)
[2021-12-19 06:31] LABS: #Eosinphils 0.3 thou/uL (0.0-0.7); #Lymphocytes 0.9 thou/uL (1.20-3.40); #Monocytes 0.9 thou/uL (0.11-0.59); #Neutrophils 9.2 thou/uL (1.40-6.50); %Basophils 0.1 % (0.0-1.0); %Lymphocytes 8.3 % (21.0-51.0); %Monocytes 7.7 % (0.0-10.0); Hemoglobin 8.6 g/dL (12.0-16.0); Mean Corpuscular HGB CONC 31.4 g/dL (32.0-36.0); Mean Corpuscular Volume 92.2 fL (78.0-98.0); Mean Platelet Volume 7.3 fL (7.4-10.4); Platelet Count 381 thou/uL (130-400); RBC Distribution Width 14.1 % (11.5-14.5); Red Blood Cell (RBC) Count 2.96 mill/uL (4.20-5.40); White Blood Cell (WBC) Count 11.4 thou/uL (4.8-10.8)
[2021-12-19 06:53] LABS: Anion Gap 23 mmol/L (10-20); BUN (Urea Nitrogen) 123 mg/dL (9.8-20.1); Calc. Creatinine Clearance 10 mL/min (70-130); Calcium 8.9 mg/dL (7.8-10.44); Carbon Dioxide 16 mmol/L (22-29); Chloride 99 mmol/L (98-107); Glucose 150 mg/dL (70-105); Potassium 4.3 mmol/L (3.5-5.1); Sodium 134 mmol/L (136-145)
[2021-12-19] MEDS: Pantoprazole 40 MG VIAL IVP SCH (08:00)
[2021-12-19] MEDS ORDERED: Polyethylene Glycol 3350 17 GM Packet PO PRN (10:57)
[2021-12-19] MEDS ORDERED: Levothyroxine Sodium 75 MCG TAB PO SCH (11:15)
[2021-12-19] MEDS: Ondansetron ODT 4 MG TAB PO SCH ×2 (11:20→17:02)
[2021-12-19] MEDS: Tuberculin PPD 0.1 ML VIAL I-DERMAL SCH (13:34)
[2021-12-19] MEDS: Calcium Carbonate 500 MG ChewTAB PO PRN (20:49)
[2021-12-19] MEDS: Atorvastatin Calcium 20 MG TAB PO SCH (20:49)
[2021-12-20] MEDS: Ondansetron ODT 4 MG TAB PO SCH ×4 (02:17→20:24)
[2021-12-20] MEDS: cefTRIAXone\\ROCEPHIN 2 GM in Sodium Chloride 0.9% 100 ML IVPB SCH (05:39)
[2021-12-20] MEDS: Levothyroxine Sodium 75 MCG TAB PO SCH (05:39)
[2021-12-20 07:46] LABS: #Eosinphils 0.1 thou/uL (0.0-0.7); #Lymphocytes 0.9 thou/uL (1.20-3.40); #Neutrophils 12.8 thou/uL (1.40-6.50); %Basophils 0.2 % (0.0-1.0); %Lymphocytes 5.8 % (21.0-51.0); Hemoglobin 8.4 g/dL (12.0-16.0); Mean Corpuscular HGB CONC 31.8 g/dL (32.0-36.0); Mean Corpuscular Hemoglobin 29.2 pg (27.0-31.0); Mean Corpuscular Volume 91.9 fL (78.0-98.0); Mean Platelet Volume 7.4 fL (7.4-10.4); Platelet Count 367 thou/uL (130-400); Red Blood Cell (RBC) Count 2.86 mill/uL (4.20-5.40); White Blood Cell (WBC) Count 14.9 thou/uL (4.8-10.8)
[2021-12-20 08:10] LABS: Anion Gap 24 mmol/L (10-20); Calc. Creatinine Clearance 9 mL/min (70-130); Calcium 8.6 mg/dL (7.8-10.44); Carbon Dioxide 13 mmol/L (22-29); Chloride 99 mmol/L (98-107); Glucose 101 mg/dL (70-105); Potassium 4.1 mmol/L (3.5-5.1); Sodium 132 mmol/L (136-145)
[2021-12-20 08:21] LABS: BUN (Urea Nitrogen) 123 mg/dL (9.8-20.1)
[2021-12-20] MEDS: Ondansetron PF 4 MG/2 ML Vial IVP PRN (09:06)
[2021-12-20] MEDS: Pantoprazole 40 MG VIAL IVP SCH (09:06)
[2021-12-20] MEDS ORDERED: Heparin 10,000 UNITS/ 10 ML VIAL ONE (09:36)
[2021-12-20] MEDS ORDERED: Ondansetron ODT 4 MG TAB PO SCH (14:15)
[2021-12-20] MEDS: Atorvastatin Calcium 20 MG TAB PO SCH (20:23)
[2021-12-20] MEDS: Docusate 100 MG CAP PO SCH (20:25)
[2021-12-21] MEDS ORDERED: cefTRIAXone\\ROCEPHIN 2 GM in Sodium Chloride 0.9% 100 ML IVPB SCH (06:00)
[2021-12-21] MEDS: Levothyroxine Sodium 75 MCG TAB PO SCH (06:00)
[2021-12-21] MEDS: Ondansetron PF 4 MG/2 ML Vial IVP PRN (06:06)
[2021-12-21] MEDS: Calcium Carbonate 500 MG ChewTAB PO PRN (06:06)
[2021-12-21 07:37] VITALS: TEMP 97.8
[2021-12-21] MEDS: Ondansetron ODT 4 MG TAB PO SCH ×2 (08:11→15:10)
[2021-12-21] MEDS: Docusate 100 MG CAP PO SCH (08:11)
[2021-12-21] MEDS: Pantoprazole 40 MG VIAL IVP SCH (08:12)
[2021-12-21] MEDS ORDERED: Heparin 10,000 UNITS/ 10 ML VIAL ONE (08:55)
[2021-12-21 15:33] VITALS: BP 162/68
== END 2021-12-21 15:40 | disposition home or self-care (01) | DRG 871 ==
LOC: ERS 03:34 → T4-A 05:52
PROVIDERS: ADMIT Family Medicine; ATTEND Family Medicine
PROC: 3E03329 Introduction of Other Anti-infective into Peripheral Vein, Percutaneous Approach (ICD-10-PCS; principal; 2021-12-15)
PROC: 0JH63XZ Insertion of Tunneled Vascular Access Device into Chest Subcutaneous Tissue and Fascia, Percutaneous Approach (ICD-10-PCS; 2021-12-17)
PROC: 02HV33Z Insertion of Infusion Device into Superior Vena Cava, Percutaneous Approach (ICD-10-PCS; 2021-12-17)
PROC: B548ZZA Ultrasonography of Superior Vena Cava, Guidance (ICD-10-PCS; 2021-12-17)
DX: A41.9 Sepsis, unspecified organism (principal); N18.6 End stage renal disease; Z68.42 Body mass index [BMI] 45.0-49.9, adult; I12.0 Hypertensive chronic kidney disease with stage 5 chronic kidney disease or end stage renal disease; N10 Acute pyelonephritis; N17.9 Acute kidney failure, unspecified; E87.1 Hypo-osmolality and hyponatremia; Z20.822 Contact with and (suspected) exposure to COVID-19; Z96.41 Presence of insulin pump (external) (internal); E11.22 Type 2 diabetes mellitus with diabetic chronic kidney disease; N28.1 Cyst of kidney, acquired; E66.01 Morbid (severe) obesity due to excess calories; G47.33 Obstructive sleep apnea (adult) (pediatric); D63.1 Anemia in chronic kidney disease; R65.20 Severe sepsis without septic shock; M10.9 Gout, unspecified; R31.9 Hematuria, unspecified; K21.9 Gastro-esophageal reflux disease without esophagitis; Z98.84 Bariatric surgery status; Z79.82 Long term (current) use of aspirin; Z79.899 Other long term (current) drug therapy; Z79.4 Long term (current) use of insulin; Z91.041 Radiographic dye allergy status; Z88.1 Allergy status to other antibiotic agents; Z79.890 Hormone replacement therapy
CPT/HCPCS: 36415; 36416; 71045; 74176; 80048; 80053; 81003; 81015; 83605; 83690; 83880; 85025; 86580; 86704; 86706; 86803; 87040; 87086; 87340; 90935; 93970; 96365; 96375; C1752; C9113; G0257; J0696; J1644; J2250; J2270; J2405; J2704; J3010; J3490; Q0162; Q4081; S0020; U0003; U0005

== ENCOUNTER 2022-02-04 12:10 | Outpatient (CLI) | payer BC | END 2022-02-04 12:11 | disposition home or self-care (01) | LOC: ULT 12:10 | PROVIDERS: ATTEND Internal Medicine | DX: N18.6 End stage renal disease (principal) | CPT/HCPCS: 93306 ==

== ENCOUNTER 2022-03-26 09:52 | Outpatient (CLI) | payer BC | END 2022-03-26 09:53 | disposition home or self-care (01) | LOC: BICRAD 09:52 | PROVIDERS: ATTEND Internal Medicine Nephrology | DX: T85.691S Other mechanical complication of intraperitoneal dialysis catheter, sequela (principal); Z99.2 Dependence on renal dialysis | CPT/HCPCS: 74019 ==

== ENCOUNTER 2022-10-18 08:01 | Outpatient (CLI) | payer BC, MEDICARE ==
[2022-10-18 08:40] LABS: #Basophils 0.1 10x3/uL (0.0-0.2); #Eosinphils 0.2 10x3/uL (0.0-0.5); #Monocytes 0.4 10x3/uL (0.0-1.1); #Neutrophils 5.7 10x3/uL (1.5-8.4); %Eosinophils 2.8 % (0.0-6.0); %Lymphocytes 21.6 % (18.0-47.0); %Monocytes 5.3 % (0.0-10.0); %Neutrophils 69.1 % (40.0-75.0); Hemoglobin 11.5 g/dL (12.0-15.5); Mean Corpuscular HGB CONC 30.7 g/dL (32.0-36.0); Mean Corpuscular Hemoglobin 30.7 pg (27.0-33.0); Mean Platelet Volume 9.2 fl (7.4-10.4); Platelet Count 223 10x3/uL (150-450); RBC Distribution Width 13.5 % (11.5-14.5); Red Blood Cell (RBC) Count 3.74 10x6/uL (3.90-5.03); White Blood Cell (WBC) Count 8.2 10x3/uL (3.5-10.5)
[2022-10-18 09:39] LABS: Anion Gap 20 mmol/L (10-20); BUN (Urea Nitrogen) 41 mg/dL (9.8-20.1); Calc. Creatinine Clearance 0 mL/min (70-130); Calcium 8.9 mg/dL (7.8-10.44); Carbon Dioxide 23 mmol/L (22-29); Chloride 101 mmol/L (98-107); Estimated GFR 5; Glucose 139 mg/dL (70-105); Potassium 5.5 mmol/L (3.5-5.1); Sodium 138 mmol/L (136-145)
== END 2022-10-18 08:02 | disposition home or self-care (01) ==
LOC: LABBT 08:01
PROVIDERS: ATTEND Surgery
DX: Z01.812 Encounter for preprocedural laboratory examination (principal); T82.49XA Other complication of vascular dialysis catheter, initial encounter
CPT/HCPCS: 80048; 85025

== ENCOUNTER 2022-10-26 09:01 | Day surgery (SDC) | payer BC, MEDICARE ==
[2022-10-22 10:07] VITALS: BMI 44.2
[2022-10-26] MEDS ORDERED: Sodium Chloride 0.9% 100 ML ONE (10:33)
[2022-10-26] MEDS ORDERED: CEFAZOLIN 2 GM VIAL ONE (10:33)
[2022-10-26] MEDS ORDERED: Acetaminophen 500 MG TAB ONE (10:38)
[2022-10-26] MEDS ORDERED: Famotidine/PF 20 mg/2ml Vial ONE (10:39)
[2022-10-26 11:27] LABS: Anion Gap 20 mmol/L (10-20); BUN (Urea Nitrogen) 27 mg/dL (9.8-20.1); Calc. Creatinine Clearance 18 mL/min (70-130); Calcium 9.5 mg/dL (7.8-10.44); Carbon Dioxide 23 mmol/L (22-29); Chloride 101 mmol/L (98-107); Estimated GFR 7; Glucose 130 mg/dL (70-105); Potassium 5.3 mmol/L (3.5-5.1); Sodium 139 mmol/L (136-145)
[2022-10-26] MEDS ORDERED: Bupivacaine/Epinephrine 0.25% 30 ML VIAL ONE (11:55)
[2022-10-26] MEDS ORDERED: Lidocaine 2% PF 5 ML VIAL ONE (11:55)
[2022-10-26] MEDS ORDERED: fentaNYL 50 mcg/mL 1 mL Vial ONE (12:54)
[2022-10-26] MEDS ORDERED: NEOSTIGMINE 3 MG/3 ML SYR 3 MG/3 ML SYRINGE ONE (13:07)
[2022-10-26] MEDS ORDERED: PROPOFOL 200 MG/20 ML VIAL ONE (13:07)
[2022-10-26] MEDS ORDERED: Phenylephrine 10 MG/ML VIAL ONE (13:07)
[2022-10-26] MEDS ORDERED: GLYCOPYRROLATE/PF 0.2 MG/ML VIAL ONE (13:07)
[2022-10-26] MEDS ORDERED: ePHEDrine Sulfate 50 MG/10 ML VIAL ONE (13:07)
[2022-10-26] MEDS ORDERED: Rocuronium Bromide 10 MG/ML (10ML VIAL) ONE (13:07)
[2022-10-26] MEDS ORDERED: Ondansetron PF 4 MG/2 ML Vial ONE (13:07)
[2022-10-26] MEDS ORDERED: Dexamethasone 20 MG/5 ML VIAL ONE (13:07)
[2022-10-26] MEDS ORDERED: Lidocaine 1% PF 5 ML VIAL ONE (13:07)
[2022-10-26] MEDS ORDERED: Promethazine HCl 25 MG/ML VIAL ONE (14:53)
== END 2022-10-26 16:45 | disposition home or self-care (01) ==
LOC: SDC 09:01
PROVIDERS: ATTEND Surgery
PROC: 0WPG43Z Removal of Infusion Device from Peritoneal Cavity, Percutaneous Endoscopic Approach (ICD-10-PCS; principal; 2022-10-26)
DX: Z49.02 Encounter for fitting and adjustment of peritoneal dialysis catheter (principal); I12.0 Hypertensive chronic kidney disease with stage 5 chronic kidney disease or end stage renal disease; E11.22 Type 2 diabetes mellitus with diabetic chronic kidney disease; N18.6 End stage renal disease; Q61.3 Polycystic kidney, unspecified; K21.9 Gastro-esophageal reflux disease without esophagitis; E03.9 Hypothyroidism, unspecified; E78.5 Hyperlipidemia, unspecified; E66.9 Obesity, unspecified; Z68.41 Body mass index [BMI] 40.0-44.9, adult; Z79.4 Long term (current) use of insulin; Z79.82 Long term (current) use of aspirin; Z79.890 Hormone replacement therapy; Z79.899 Other long term (current) drug therapy; Z88.8 Allergy status to other drugs, medicaments and biological substances; Z91.041 Radiographic dye allergy status; Z98.84 Bariatric surgery status
CPT/HCPCS: 80048; J1100; J2001; J2370; J2405; J2550; J2704; J3010; J3490; S0028